=== PATIENT | male | born 1970 | race Two or more races ===

== ENCOUNTER 2024-11-06 14:26 | Emergency (ER) | payer OTHER | END 2024-11-06 15:08 | disposition left against medical advice (07) | LOC: ER 14:26 | DX: F10.10 Alcohol abuse, uncomplicated (principal); Z53.21 Procedure and treatment not carried out due to patient leaving prior to being seen by health care provider; Y90.9 Presence of alcohol in blood, level not specified ==

== ENCOUNTER 2024-11-06 19:42 | Emergency (ER) | payer OTHER | END 2024-11-06 20:20 | disposition left against medical advice (07) | LOC: ER 19:42 | DX: F10.90 Alcohol use, unspecified, uncomplicated (principal); Z53.21 Procedure and treatment not carried out due to patient leaving prior to being seen by health care provider; Y90.0 Blood alcohol level of less than 20 mg/100 ml ==

== ENCOUNTER 2024-11-08 14:17 | Emergency (ER) | payer OTHER ==
[~2024-11-08] VITALS: Ht 180.3 cm; Wt 100.5 kg
[2024-11-08 15:43] LABS: Basophils # (auto) 0.1 10 ^3/uL (0-0.2); Basophils % (auto) 1.3 % (0.0-2.0); Eosinophils # (auto) 0 10 ^3/uL (0-0.8); Eosinophils % (auto) 0.2 % (0.0-7.0); Hematocrit 39.6 % (41.0-53.0); Hemoglobin 13.5 g/dL (13.5-17.5); Lymphocytes # (auto) 1.9 10 ^3/uL (0.4-5.4); Lymphocytes % (auto) 24.2 % (10.0-50.0); Mean Corpuscular Hemoglobin 31.2 pg (28.0-32.0); Mean Corpuscular Hgb Conc. 34.1 g/dL (32.0-36.0); Mean Corpuscular Volume 91.6 fL (80.0-100.0); Monocytes # (auto) 1.1 10 ^3/uL (0-1.3); Monocytes % (auto) 13.8 % (0.0-12.0); Neutrophils # (auto) 4.8 10 ^3/uL (1.6-8.6); Neutrophils % (auto) 60.5 % (37.0-80.0); Nucleated Red Blood Cells % 0.1 %; Platelet Count (auto) 136 10^3/uL (140-450); Red Blood Cells 4.33 10^6/uL (4.5-5.90); Red Cell Distribution Width 14.9 % (11.8-14.3)
[2024-11-08] MEDS: SODIUM CHLORIDE 0.9% 1,000 ML IV ONE (15:46)
[2024-11-08] MEDS: ONDANSETRON HCL 4 MG/2 ML VIAL IV ONE (15:46)
--- NOTE | 2024-11-08 15:55 | ED.PDOC ---
History of Present Illness HPI Comments [age] year old male with history of hypertension, anxiety, prior alcohol abuse with reported 2 year history of sobriety here today after binge drinking over the last 4 days. Patient states his last drink was a few hours prior to arrival today. Patient states that he feels anxious, tremulous, and nauseous. No suicidal or homicidal thoughts. No hallucinations. No prior history of seizures. No drug use. No trauma. No falls. Nail pain. Does endorse 1 episode of nonbloody nonbilious vomiting. No hematemesis. No coffee-ground emesis. No black or bloody stools. No other pain or symptoms. Chief Complaint: EtOH Intoxication Time Seen by MD: 15:05 Primary Care Provider: [place] Allergies: Coded Allergies: NO KNOWN ALLERGIES (Unverified , 11/08/24) Mode of Arrival: Ambulatory Past Medical History PAST MEDICAL HISTORY: HTN Past Medical History (Other): Prior alcohol abuse, anxiety, hypertension All Other Systems: Reviewed and Negative (Negative except as noted per HPI) Physical Exam General Appearance: No Apparent Distress, Normal, Other (Awake, answering questions appropriately, in no distress, minimally anxious appearing, no suicidal or homicidal thoughts. Does not appear to be hallucinating. Smells of ETOH.) HEENT: Normal ENT Inspection, Pharynx Normal, TMs Normal Neck: Full Range of Motion, Non-Tender, Normal, Normal Inspection Respiratory: Chest Non-Tender, Lungs Clear, No Accessory Muscle Use, No Respiratory Distress, Normal Breath Sounds Cardiovascular: No Edema, No JVD, No Murmur, No Gallop, Normal Peripheral Pulses, Regular Rate/Rhythm Breast Exam: Deferred Gastrointestinal: No Organomegaly, Non Tender, No Pulsatile Mass, Normal Bowel Sounds, Soft Genitalia: Deferred Pelvic: Deferred Rectal: Deferred Extremities: No calf tenderness, Normal capillary refill, Normal inspection, Normal range of motion, Non-tender, No pedal edema Musculoskeletal : Apperance: Normal Neurologic: Alert, 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 Was a procedure done?: No EKG EKG : [place]: Normal Cardiac Rhythm: NSR Comments No STEMI Differential Dx Considerations may include: Alcohol intoxication, substance abuse, psychiatric illness, alcohol withdrawals, head trauma, cirrhosis, delirium tremens X-Ray, Labs, Meds, VS Vital Signs Date Time Temp Pulse Resp B/P (MAP) Pulse Ox O2 Delivery O2 Flow Rate FiO2 11/08/24 19:53 64 14 99 Nasal Cannula* 2 28 11/08/24 19:53 97.9 64 14 110/53 (72) 99 97.9 11/08/24 18:08 102 19 115/59 (77) 95 11/08/24 16:10 98.2 96 20 132/76 (94) 95 98.2 11/08/24 16:00 103 11/08/24 16:00 96 20 95 Nasal Cannula* 2 28 11/08/24 15:12 104 11/08/24 15:00 97.9 112 18 99/76 (84) 96 97.9 Lab Test 11/08/24 15:33 Range/Units White Blood Count 8.0 4.4-10.8 10^3/uL Red Blood Count 4.33 L 4.5-5.90 10^6/uL Hemoglobin 13.5 13.5-17.5 g/dL Hematocrit 39.6 L 41.0-53.0 % Mean Corpuscular Volume 91.6 80.0-100.0 fL Mean Corpuscular Hemoglobin 31.2 28.0-32.0 pg Mean Corpuscular Hemoglobin Concent 34.1 32.0-36.0 g/dL Red Cell Distribution Width 14.9 H 11.8-14.3 % Platelet Count 136 L 140-450 10^3/uL Mean Platelet Volume 6.6 L 6.9-10.8 fL Neutrophils (%) (Auto) 60.5 37.0-80.0 % Lymphocytes (%) (Auto) 24.2 10.0-50.0 % Monocytes (%) (Auto) 13.8 H 0.0-12.0 % Eosinophils (%) (Auto) 0.2 0.0-7.0 % Basophils (%) (Auto) 1.3 0.0-2.0 % Neutrophils # (Auto) 4.8 1.6-8.6 10 ^3/uL Lymphocytes # (Auto) 1.9 0.4-5.4 10 ^3/uL Monocytes # (Auto) 1.1 0-1.3 10 ^3/uL Eosinophils # (Auto) 0 0-0.8 10 ^3/uL Basophils # (Auto) 0.1 0-0.2 10 ^3/uL Nucleated Red Blood Cells 0.1 % Sodium Level 138 136-145 mmol/L Potassium Level 4.3 3.5-5.1 mmol/L Chloride Level 100 98-107 mmol/L Carbon Dioxide Level 27 20-31 mmol/L Anion Gap 11 5-15 Blood Urea Nitrogen < 5 L 9-23 mg/dL Creatinine 0.85 0.700-1.30 mg/dL Glomerular Filtration Rate Calc 102 >90 mL/min BUN/Creatinine Ratio 5.9 L 10.0-20.0 Serum Glucose 155 H 74-106 mg/dL Calcium Level 8.8 8.7-10.4 mg/dL Total Bilirubin 0.7 0.2-1.0 mg/dL Direct Bilirubin 0.2 <0.3 mg/dL Aspartate Amino Transferase (AST) 196 H 13-40 U/L Alanine Aminotransferase (ALT) 90 H 7-40 U/L Alkaline Phosphatase 190 H 46-116 U/L Total Protein 7.4 5.7-8.2 g/dL Albumin 4.2 3.2-4.8 g/dL Lipase 48 12-53 U/L Plasma/Serum Blood Alcohol 435.4 *H <10 mg/dL Current Medications Medications (Trade) Dose Ordered Sig/Monica Route Start Time Stop Time Status Last Admin Sodium Chloride 1,000 ml @ 1,000 mls/hr Q1H ONCE IV 11/08/24 15:15 11/08/24 16:14 DC 11/08/24 15:46 Ondansetron HCl (Zofran) 4 mg O ONCE IV 11/08/24 15:15 11/08/24 15:16 DC 11/08/24 15:46 X-Ray, Labs, Meds, VS Comment 54-year-old male with history of anxiety, hypertension, prior alcohol abuse here today after 4 days of binge drinking with complaints of nausea/vomiting and anxiety. Vital signs notable for tachycardia but otherwise unremarkable. Physical exam as above with evidence of minimal anxiety but otherwise no significant acute findings. Normal neurologic exam. No evidence of trauma. No asterixis. No tongue fasciculations. Patient was given a L of normal saline and Zofran and was observed in the emergency department until he was clinically sober and stable for discharge. I informed the patient of his elevated LFTs and strongly encouraged him to attempt alcohol cessation given his recent history of sobriety however the patient indicated that he does not think he was quite ready for this yet. As a result, I did not prescribe the patient any Librium or any other medication to help with withdrawals as he stated he would go and drink alcohol and is not in the right mind set for abstinence. I provide the patient with strict return precautions for any suicidal or homicidal thoughts, hallucinations, seizures, nausea/vomiting, or any other new or concerning symptoms. Patient expressed understanding and was discharged in stable condition ambulating with a steady gait and in no distress. Time of 1ST Reevaluation: 16:24 Reevaluation 1ST: Improved Time of 2ND Reevaluation: 18:25 Reevaluation 2ND: Improved Time of 3RD Reevaluation: 22:50 Reevaluation 3RD: Improved (Ambulating with a steady gait, answering questions appropriately, clinically sober, walked to restroom on his own, tolerated a meal) Patient Education/Counseling: Diagnosis, Treatment, Prognosis, Need For Follow Up Family Education/Counseling: No Family Present Departure 1 Departure Time of Disposition: 22:50 Impression: Primary Impression: Alcohol intoxication Additional Impressions: History of alcohol abuse History of hypertension Elevated AST (SGOT) Disposition: 01 HOME / SELF CARE / HOMELESS Condition: Stable Discharged With: Self Critical Care Note Critical Care Time?: Yes (30 min-critical care time only) Stability Stability form required: No Heart Score Heart Score: Heart Score Response (Comments) Value History N/A 0 EKG N/A 0 Age N/A 0 Risk Factors N/A 0 Troponin N/A 0 Total 0 JIMMY ALEXANDER MD November 08, 2024 15:55
[2024-11-08 16:00] VITALS: PULSE 96; RESP 20; O2SAT 95
[2024-11-08 16:02] LABS: Albumin 4.2 g/dL (3.2-4.8); Anion Gap 11 (5-15); Bilirubin, Direct 0.2 mg/dL (<0.3); Bilirubin, Total 0.7 mg/dL (0.2-1.0); Calcium 8.8 mg/dL (8.7-10.4); Carbon Dioxide 27 mmol/L (20-31); Chloride 100 mmol/L (98-107); Sodium 138 mmol/L (136-145); Total Protein 7.4 g/dL (5.7-8.2)
[2024-11-08 16:06] LABS: Alkaline Phosphatase 190 U/L (46-116); Aspartate Aminotransferase 196 U/L (13-40); BUN/Creatinine Ratio 5.9 (10.0-20.0); Glucose 155 mg/dL (74-106); Potassium 4.3 mmol/L (3.5-5.1)
[2024-11-08 16:07] LABS: Alanine Aminotransferase 90 U/L (7-40); Blood Urea Nitrogen < 5 mg/dL (9-23)
[2024-11-08 16:14] LABS: Blood Alcohol 435.4 mg/dL (<10)
[2024-11-08 19:53] VITALS: PULSE 64; RESP 14; O2SAT 99
[2024-11-08 23:00] VITALS: BP 129/70; PULSE 94; RESP 18; TEMP 97.9; O2SAT 98
--- NOTE | 2024-11-11 13:44 | ECG ---
[facility] Test Date: 2024-11-08 Test Time: 15:12:34 Pat Name: ROBERT ABDULLAHI Department: ER Room: Gender: M Manager Programming: DR BRISENO: 1970 Requested By: JIMMY ALEXANDER Order Number: [id number] Reading MD: Virgilio Mccord Measurements Intervals [place] Rate: 104 P: 37 NM: 174 QRS: -68 QRSD: 104 T: 33 QT: 345 QTc: 454 Interpretive Statements Sinus tachycardia Inferior infarct, old Electronically Signed On 11-12-2024 20:35:56 PDT by Virgilio Mccord Please click the below link to view image of tracing.
== END 2024-11-08 23:27 | disposition home or self-care (01) ==
LOC: ER 14:17
DX: F10.129 Alcohol abuse with intoxication, unspecified (principal); F41.9 Anxiety disorder, unspecified; I10 Essential (primary) hypertension; R74.01 Elevation of levels of liver transaminase levels; Y90.8 Blood alcohol level of 240 mg/100 ml or more
CPT/HCPCS: 36415; 80048; 80076; 80320; 83690; 85025; 93005; 96361; 96374; 99285; J2405; J7030

== ENCOUNTER 2024-11-09 02:08 | Emergency (ER) | payer OTHER | END 2024-11-09 05:25 | disposition left against medical advice (07) | LOC: ER 02:08 | DX: I10 Essential (primary) hypertension (principal); Z53.21 Procedure and treatment not carried out due to patient leaving prior to being seen by health care provider ==

== ENCOUNTER 2024-11-09 05:06 | Emergency (ER) | payer OTHER ==
[2024-11-09 05:28] VITALS: TEMP 96
--- NOTE | 2024-11-09 06:12 | ED.PDOC ---
CPR-HPI HPI Comments 54 y/o M, with a history of HTN and alcohol abuse, presents with c/o cardiac arrest. Patient was seen and evaluated for c/o 4 day binge drinking, with associated nausea, vomiting, and anxiety, on 11/08/24. Patient presented again to the emergency department and checked in to be seen around 2:08 a.m on 11/09/24. Patient was unable to be located in the lobby or ER for triage or for provider evaluation after multiple call. Patient was later found in the ED lobby by security staff unresponsive at around 0500. Per security staff, patient was witnessed multiple times leaving ED lobby on his own accords to go to his vehicle to consume more alcohol prior to being found in current state. Patient was brought into resuscitation area and ACLS protocols were initiated by ED staff. Chief Complaint: CPR Time Seen by MD: 05:05 Primary Care Provider: TONIE Conner Reviewed Notes: Nurses Notes, Medications, Allergies Allergies: Coded Allergies: NO KNOWN ALLERGIES (Unverified , 11/08/24) Information Source: Emergency Med Personnel, [facility] Medical Record Mode of Arrival: Wheelchair Review of Systems: Unable to obtain ROS Vital Signs Vital Signs Date Time Temp Pulse Resp B/P (MAP) Pulse Ox O2 Delivery O2 Flow Rate FiO2 11/09/24 07:48 204.8 0 0 0 Ambu-Bag 0 0 11/09/24 05:07 0 21 Physical Exam General: Patient is unresponsive HEENT: Pupils fixed, dilated, nonreactive. There is no corneal reflex. Cardiac: No heart sounds auscultated, no pulses palpated Abdomen: Soft, nondistended Respiratory: No spontaneous respirations, no breath sounds auscultated Neuro: GCS 3, patient is unresponsive to painful stimulus Skin: Cool and mottled Past Medical History PAST MEDICAL HISTORY: HTN Surgical History: Unknown, Unobtainable Family History Family History: Unknown, Unobtainable Social History Smoker: Non-Smoker Alcohol: Heavy Drugs: Denies Drug Use Lives In: Home Was a procedure done? Was a procedure done?: No Differential Dx CPR Differential Diagnosis: Cardiopulmonary arrest, Dysrhythmia, Electrolyte disorder, Heart Block, Myocardial Infarction, Pulmonary Embolus, Respiratory Failure X-Ray, Labs, Meds, VS Vital Signs Date Time Temp Pulse Resp B/P (MAP) Pulse Ox O2 Delivery O2 Flow Rate FiO2 11/09/24 07:48 204.8 0 0 0 Ambu-Bag 0 0 11/09/24 05:28 96.0 96.0 11/09/24 05:07 Room Air* 0 21 Time of 1ST Reevaluation: 05:21 Reevaluation 1ST: Patient Education/Counseling: Other (Patient ) Family Education/Counseling: No Family Present Departure 1 Departure Time of Disposition: 05:21 Impression: Primary Impression: Cardiac arrest Disposition: 20 Condition: Other Comments 54-year-old male found in ED lobby unresponsive and pulseless. CPR was initiated by ER staff without my direct supervision as at the time patient was found I was involved in resuscitation of another critically ill patient. Airway management had been initiated by the respiratory therapist prior to my arrival and endotracheal intubation was performed by respiratory therapist. Upon my arrival to the resuscitation area cardiac compressions were performed by staff in order to sustain blood flow. The patient received appropriate ACLS measures and these were repeated as necessary throughout the resuscitation. Despite ongoing efforts the patient remained pulseless with no return of spontaneous circulation. Given the extended downtime, poor prognosis, lack of neurologic response, lack of response to ACLS interventions the code was ultimately deemed medically futile and resuscitative efforts were terminated in associated with the ACLS protocol and clinical judgment. See patient resuscitation status note for vital signs, blood glucose, medications and times given. After discontinuation of resuscitation, I did not observe spontaneous breathing or appreciate heart sounds on auscultation. There was no palpable radial pulse. The patient did not respond to nail bed stimuli. I examined the patient and there was no pupillary response to light. Patient was pronounced . TOD: [0521] I reviewed the following notes from the pt's past medical encounters: November 06, , and encounters in 2024 for alcohol intoxication and high blood pressure. Critical Care Note Critical Care Time?: No Heart Score Heart Score: Heart Score Response (Comments) Value History N/A 0 EKG N/A 0 Age N/A 0 Risk Factors N/A 0 Troponin N/A 0 Total 0 Stability Stability form required: No I personally scribed for HALLIE OLVERA MD ([email or web address]) on 11/09/24 at 06:12. Electronically submitted by Arben García ([email or web address]). HALLIE OLVERA MD November 09, 2024 06:12
--- NOTE | 2024-11-09 07:48 | RESUS ---
CODE BLUE ASSESSSMENT History of Events History of Events: 54 y/o obese M, with a history of HTN and alcohol abuse, presents with c/o cardiac arrest. Patient was, initially, evaluated in and discharged from ED after BIBA for c/o 4 day binge drinking, with associated nausea, vomiting, and anxiety, on 11/08/24. He was later found in the ED lobby by security staff unresponsive at around 0500 after checking himself back for c/o HTN and failing multiple times to respond to calls for triaging. Unknown total downtime. Per security staff, patient was witnessed multiple times leaving ED lobby on his own accords to go to his vehicle to consume more alcohol prior to being found in current state. Initial Information Date: November 09, 2024 Time: 05:05 Location of Arrest: ER Arrest Witnessed: No CPR started initial time: 05:06 CPR started by whom: Hospital Staff Last seen well: UNKNOWN Pre-Hospital Care: ACLS Type of arrest: Cardiac, Respiratory, Adult, Unwitnessed Spontaneous Respirations: No Pulse Present: No Monitoring: ECG, Pulse Oximetry, Apnea, Telemetry Crash Cart Opened and Supplies: Yes Airway Ventilation Breathing at Onset: Apneic O2 Sat by Pulse Oximetry: 0 Oxygen Delivery Method: Ambu-Bag Time of first Assisted Ventila: 05:08 Artificial Ventilation: Bag/Endo tube Intubation Time: 05:08 Intubation Size: 8.0 cuffed Intubated by: GOMEZ ORDAZ Intubation Attempts: 1 Intubated orally: Yes Intubated Nasaly: No Tube secured at: 24 CO2 indicator used: Yes Confirmation: Auscultation, Exhaled CO2 Suctioning (Oral/Tracheal): Yes Circulation Circulation : Time: 05:06 Pulse Rate (adult): 0 Blood Pressure Systolic: 0 Blood Pressure Diastolic: 0 Temperature (Fahrenheit): 96 Procedure - Intraosseous Time of intraosseous: 05:10 Site of Intraosseous: Tibia robbie-medial Intraosseous inserted by: DR JACKSON Number of attempts for Intraos: 1 Medications & Response Medications and Responses #1: Medication Time: 05:10 ADULT Medications Given ADULT: Epinephrine 1 mg, Sodium Bacarbinate 50 meq, Calcium Chloride 10 mL Route of Administration: IO Heart Rate: 0 Blood Pressure Systolic: 0 Blood Pressure Diastolic: 0 Respiratory Rate: 0 O2 Sat by Pulse Oximetry: 0 EKG Rhythm: Asystole Comment NO PULSE AT 0510 AND 0512 Medications and Responses #2: Medication Time: 05:12 ADULT Medications Given ADULT: Epinephrine 1 mg Route of Administration: IO Heart Rate: 0 EKG Rhythm: Asystole Blood Pressure Systolic: 0 Blood Pressure Diastolic: 0 Respiratory Rate: 0 O2 Sat by Pulse Oximetry: 0 EKG Rhythm: Asystole Comment 0515 NO PULSE Medications and Responses #3: Medication Time: 05:15 ADULT Medications Given ADULT: Epinephrine 1 mg Route of Administration: IO Heart Rate: 0 EKG Rhythm: Asystole Blood Pressure Systolic: 0 Blood Pressure Diastolic: 0 Respiratory Rate: 0 O2 Sat by Pulse Oximetry: 0 EKG Rhythm: Asystole Comment NO PULSE 0518 Medications and Responses #4: Medication Time: 05:18 ADULT Medications Given ADULT: Epinephrine 1 mg Route of Administration: IO Heart Rate: 0 EKG Rhythm: Asystole Blood Pressure Systolic: 0 Blood Pressure Diastolic: 0 Respiratory Rate: 0 O2 Sat by Pulse Oximetry: 0 EKG Rhythm: Asystole Comment NO PULSE 0521 PT PRONOUNCED Pacing Pacer Pads Applied and Pacing: Yes Nurses Notes [place] Coma Scale Eye Opening: None (1) [place] Coma Scale Verbal: None (1) [place] Coma Scale Motor: None (1) [place] Total: 3 Pupil Reaction: Non Reactive Bedside Blood Glucose: 153 EKG Rhythm: Asystole Time Code Ended Time Code Ended: 05:21 Post Arrest Status: Outcome of code: Unsuccessful Patient pronounced by: DR OLVERA Time patient pronounced: 05:21 Family notified: Yes Attending called: Yes Code Team Present: DR OLVERA, MARTÍN MENDOSA RN HS, ALYCIA APPRENTICE, LORA RN, JOSEPH RN, BERTHA ERTNELSON ERT, JOHANNA RT, GOMEZ RT. Post Resuscitation Neurologica Pupil Size: 5 Comment: MARTÍN NGUYEN November 09, 2024 07:48
== END 2024-11-09 05:21 ==
LOC: ER 05:06
DX: I46.9 Cardiac arrest, cause unspecified (principal); I10 Essential (primary) hypertension; F41.9 Anxiety disorder, unspecified
CPT/HCPCS: 31500; 92950